=== PATIENT | female | born 1970 | race Caucasian/White ===

== ENCOUNTER → 2016-04-17 | Outpatient (CLI) | payer BC ==
[~2016-04-17] VITALS: Ht 157.5 cm; Wt 88.5 kg
[~2016-04-17] MED LIST: GABA-494 PO; HYDR12.56 PO; LISI10TA6 PO
[2016-04-17 12:41] LABS: Basophils # (auto) 0 uL; Basophils % (auto) 0.2 % (0.0-2.0); Eosinophils # (auto) 0.2 uL; Eosinophils % (auto) 2.4 % (0.0-7.0); Hemoglobin 13.1 g/dL (12.2-16.2); Lymphocytes # (auto) 1.2 uL; Lymphocytes % (auto) 12.4 % (10.0-50.0); Mean Corpuscular Hemoglobin 32.4 pg (28.0-32.0); Mean Corpuscular Hgb Conc. 33.6 g/dL (32.0-36.0); Mean Corpuscular Volume 96.5 fL (80.0-100.0); Mean Platelet Volume 8.3 fL (7.4-10.4); Monocytes # (auto) 0.4 uL; Monocytes % (auto) 4.5 % (0.0-12.0); Neutrophils # (auto) 7.7 uL; Neutrophils % (auto) 80.5 % (37.0-80.0); Platelet Count (auto) 244 10^3/uL (140-450); Red Cell Distribution Width 15.3 % (11.6-16.0); Urine Bilirubin Negative (Negative); Urine Blood Negative /uL (Negative); Urine Color Yellow (Yellow); Urine Glucose Normal (Normal); Urine Ketone Negative (Negative); Urine Nitrite Negative (Negative); Urine Urobilinogen Normal (Negative); Urine pH 5.5 (5.0-8.0); White Blood Cell 9.6 10^3/uL (4.4-10.8)
[2016-04-17 12:52] LABS: INR 0.97 (0.9-1.15); Partial Thromboplastin Time 26.8 sec (22.64-33.71)
[2016-04-17 13:07] LABS: Albumin 3.8 g/dL (3.4-5.0); BUN/Creatinine Ratio 16.7; Calcium 9.1 mg/dL (8.5-10.1); Potassium 4.1 mmol/L (3.5-5.1); Total Protein 7.7 g/dL (6.4-8.2)
[2016-04-17 13:09] LABS: Bilirubin, Total 0.6 mg/dL (0.2-1.0)
== END | disposition home or self-care (01) ==
LOC: LAB 08:00 → EDSTATUS 04-20 07:00
PROVIDERS: ATTEND Obstetrics & Gynecology
DX: N92.0 Excessive and frequent menstruation with regular cycle (principal); N93.9 Abnormal uterine and vaginal bleeding, unspecified; Z90.710 Acquired absence of both cervix and uterus; I10 Essential (primary) hypertension; Z98.51 Tubal ligation status; Z90.722 Acquired absence of ovaries, bilateral
CPT/HCPCS: 36415; 80053; 81003; 84702; 85025; 85049; 85610; 85730; 86850; 86900; 86901

== ENCOUNTER 2016-08-03 07:12 | Inpatient (IN) | payer BC ==
[2016-07-31 12:27] LABS: Urine Bilirubin Negative (Negative); Urine Blood Negative /uL (Negative); Urine Color Yellow (Yellow); Urine Glucose Normal (Normal); Urine Ketone Negative (Negative); Urine Nitrite Negative (Negative); Urine Urobilinogen Normal (Negative)
[2016-07-31 12:32] LABS: Basophils # (auto) 0 uL; Basophils % (auto) 0.4 % (0.0-2.0); Eosinophils # (auto) 0.3 uL; Eosinophils % (auto) 5.8 % (0.0-7.0); Hematocrit 33.3 % (36.0-46.0); Lymphocytes # (auto) 1.1 uL; Lymphocytes % (auto) 19.9 % (10.0-50.0); Mean Corpuscular Hemoglobin 32.4 pg (28.0-32.0); Mean Corpuscular Hgb Conc. 32.9 g/dL (32.0-36.0); Mean Corpuscular Volume 98.4 fL (80.0-100.0); Mean Platelet Volume 8.1 fL (7.4-10.4); Monocytes # (auto) 0.4 uL; Neutrophils # (auto) 3.8 uL; Neutrophils % (auto) 66.9 % (37.0-80.0); Platelet Count (auto) 239 10^3/uL (140-450); Red Cell Distribution Width 15.4 % (11.6-16.0); White Blood Cell 5.6 10^3/uL (4.4-10.8)
[2016-07-31 12:46] LABS: INR 0.93 (0.9-1.15); Partial Thromboplastin Time 24.9 sec (22.64-33.71)
[2016-07-31 13:00] LABS: Albumin 3.8 g/dL (3.4-5.0); BUN/Creatinine Ratio 11.8; Bilirubin, Total 0.2 mg/dL (0.2-1.0); Calcium 9.7 mg/dL (8.5-10.1); Potassium 4.3 mmol/L (3.5-5.1); Total Protein 7.4 g/dL (6.4-8.2)
[~2016-08-03] VITALS: Ht 157.5 cm; Wt 90.5 kg
[~2016-08-03 07:12] MED LIST changes: +AMLO10TA2 PO; -HYDR12.56 PO
[2016-08-03] MEDS ORDERED: ceFAZolin 1GM/50ML D5W 50 ML IV ONE (07:31)
[2016-08-03] MEDS ORDERED: HYDROMORPHONE PCA IN NS 50 ML IV SCH (08:33)
[2016-08-03] MEDS ORDERED: ROCURONIUM 10MG/ML 10ML VIAL IV ONE (08:51)
[2016-08-03] MEDS ORDERED: fentaNYL CITRATE 100 MCG/2 ML VL ONE ×2 (08:51→11:49)
[2016-08-03] MEDS ORDERED: MIDAZOLAM HCL 1MG/1ML-2 ML VIAL ONE ×2 (08:51→11:49)
[2016-08-03] MEDS ORDERED: PROPOFOL 10 MG/ML 20 ML IV ONE (08:51)
[2016-08-03] MEDS ORDERED: MEPERIDINE HCL (50 MG/ML) 1 ML VIAL ONE (08:51)
[2016-08-03] MEDS ORDERED: SODIUM CHLORIDE LOCK 50 ML ONE (08:51)
[2016-08-03] MEDS ORDERED: SUCCINYLCHOLINE CHLORIDE 20 MG/ML 10ML VIAL IV ONE (08:51)
[2016-08-03] MEDS ORDERED: LIDOCAINE HCL 2 %PF INJ 10ML AMP IJ ONE (09:47)
[2016-08-03] MEDS ORDERED: KETOROLAC TROMETH 30 MG/ML 1ML VIAL IV ONE ×2 (10:15→10:30)
[2016-08-03] MEDS ORDERED: METOCLOPRAMIDE HCL 5MG/ml INJ 2ml VIAL IV ONE ×2 (10:15→10:30)
[2016-08-03] MEDS ORDERED: HYDROmorphone HCL 2 MG/ML VL IV PRN ×2 (10:15→10:30)
[2016-08-03] MEDS ORDERED: NEOSTIGMINE 1 MG/ML INJ (10mg/10ML VIAL) ONE (10:24)
[2016-08-03] MEDS ORDERED: GLYCOPYRROLATE 0.2 MG/ML 1ML VIAL ONE (10:24)
[2016-08-03] MEDS ORDERED: KETOROLAC TROMETH 60MG/2ML VIAL IM ONE (10:24)
[2016-08-03] MEDS ORDERED: LACTATED RINGER'S 1,000 ML IV SCH (11:21)
[2016-08-03] MEDS ORDERED: ONDANSETRON HCL 4 MG/2 ML VIAL IV PRN ×2 (11:30→14:15)
[2016-08-03] MEDS ORDERED: ACETAMINOPHEN IV 100 ML IV ONE (11:53)
[2016-08-03] MEDS ORDERED: ACETAMINOPHEN IV 1000 MG/100ML (10MG/ML) IV ONE (12:00)
[2016-08-03] MEDS: HYDROmorphone HCL 2 MG/ML VL IV PRN ×2 (14:27→22:43)
[2016-08-03] MEDS: ceFAZolin 1GM/50ML D5W 50 ML IV SCH ×2 (15:04→22:44)
[2016-08-03 16:08] VITALS: BP 110/76
[2016-08-03] MEDS ORDERED: HYDR12.56 PO (17:10)
[2016-08-03 17:11] VITALS: BP 105/73
[2016-08-03] MEDS: KETOROLAC TROMETH 30 MG/ML 1ML VIAL IV SCH (18:14)
[2016-08-03 20:00] VITALS: BP 105/73
[2016-08-03 20:04] LABS: Basophils # (auto) 0 uL; Basophils % (auto) 0.3 % (0.0-2.0); Eosinophils # (auto) 0.2 uL; Eosinophils % (auto) 2.3 % (0.0-7.0); Hematocrit 29.5 % (36.0-46.0); Hemoglobin 9.8 g/dL (12.2-16.2); Lymphocytes # (auto) 0.9 uL; Lymphocytes % (auto) 13.2 % (10.0-50.0); Mean Corpuscular Hemoglobin 32.6 pg (28.0-32.0); Mean Corpuscular Hgb Conc. 33.2 g/dL (32.0-36.0); Mean Corpuscular Volume 98.1 fL (80.0-100.0); Mean Platelet Volume 7.6 fL (7.4-10.4); Monocytes # (auto) 0.2 uL; Monocytes % (auto) 3.7 % (0.0-12.0); Neutrophils # (auto) 5.4 uL; Neutrophils % (auto) 80.5 % (37.0-80.0); Platelet Count (auto) 180 10^3/uL (140-450); Red Cell Distribution Width 15.5 % (11.6-16.0); White Blood Cell 6.7 10^3/uL (4.4-10.8)
[2016-08-03 22:00] VITALS: BP 117/86
[2016-08-04 05:00] VITALS: BP 128/79
[2016-08-04] MEDS: HYDROmorphone HCL 2 MG/ML VL IV PRN ×2 (05:45→10:19)
[2016-08-04] MEDS: KETOROLAC TROMETH 30 MG/ML 1ML VIAL IV SCH ×4 (06:00→18:00)
[2016-08-04] MEDS: ceFAZolin 1GM/50ML D5W 50 ML IV SCH (06:03)
[2016-08-04 06:22] LABS: Basophils # (auto) 0 uL; Basophils % (auto) 0.2 % (0.0-2.0); Eosinophils # (auto) 0.2 uL; Eosinophils % (auto) 3.4 % (0.0-7.0); Hematocrit 27.7 % (36.0-46.0); Hemoglobin 9.3 g/dL (12.2-16.2); Lymphocytes # (auto) 0.7 uL; Lymphocytes % (auto) 11.6 % (10.0-50.0); Mean Corpuscular Hgb Conc. 33.5 g/dL (32.0-36.0); Mean Corpuscular Volume 98.5 fL (80.0-100.0); Mean Platelet Volume 7.9 fL (7.4-10.4); Monocytes # (auto) 0.3 uL; Monocytes % (auto) 4.6 % (0.0-12.0); Neutrophils # (auto) 4.5 uL; Neutrophils % (auto) 80.2 % (37.0-80.0); Platelet Count (auto) 183 10^3/uL (140-450); Red Cell Distribution Width 15.4 % (11.6-16.0); White Blood Cell 5.7 10^3/uL (4.4-10.8)
[2016-08-04 08:00] VITALS: BP 117/75
[2016-08-04 09:00] VITALS: BP 117/75
[2016-08-04] MEDS ORDERED: BISACODYL 10 MG RECT SUPP PR PRN (10:45)
[2016-08-04] MEDS ORDERED: SUCRALFATE 1 GM TAB PO ONE (10:45)
[2016-08-04] MEDS ORDERED: HYDROcodone-ACET 10/325MG TAB PO PRN (10:45)
[2016-08-04] MEDS ORDERED: LACTATED RINGER'S 1,000 ML IV SCH (11:21)
[2016-08-04] MEDS ORDERED: HYDROcodone-ACET 5/325MG TAB PO PRN (11:45)
[2016-08-04 13:00] VITALS: BP 139/85
[2016-08-04] MEDS: HYDROcodone-ACET 5/325MG TAB PO PRN (14:06)
[2016-08-04 16:52] VITALS: BP 106/77
[2016-08-04] MEDS: DOCUSATE SOD 100 MG CAP PO SCH (21:19)
[2016-08-04 21:35] VITALS: BP 131/86
[2016-08-05] MEDS: HYDROcodone-ACET 5/325MG TAB PO PRN (03:26)
[2016-08-05 04:30] VITALS: BP 128/83
[2016-08-05 08:00] VITALS: BP 131/81
[2016-08-05] MEDS ORDERED: ONDANSETRON HCL 4 MG/2 ML VIAL IV ONE (08:51)
[2016-08-05 09:00] VITALS: BP 131/81
[2016-08-05] MEDS: DOCUSATE SOD 100 MG CAP PO SCH (10:00)
[2016-08-05 13:00] VITALS: BP 141/83
== END 2016-08-05 13:30 | disposition home or self-care (01) | DRG 743 ==
LOC: SUR 07:12 → EAST 07:13
PROVIDERS: ADMIT Obstetrics & Gynecology; ATTEND Obstetrics & Gynecology
PROC: 0UTC0ZZ Resection of Cervix, Open Approach (ICD-10-PCS; 2016-08-03)
PROC: 0UT20ZZ Resection of Bilateral Ovaries, Open Approach (ICD-10-PCS; 2016-08-03)
PROC: 0UT70ZZ Resection of Bilateral Fallopian Tubes, Open Approach (ICD-10-PCS; 2016-08-03)
PROC: 0UT90ZZ Resection of Uterus, Open Approach (ICD-10-PCS; principal; 2016-08-03 09:08)
DX: N92.0 Excessive and frequent menstruation with regular cycle (principal); F17.200 Nicotine dependence, unspecified, uncomplicated; I10 Essential (primary) hypertension; Z90.710 Acquired absence of both cervix and uterus; Z98.51 Tubal ligation status
CPT/HCPCS: 36415; 80053; 81003; 84702; 85025; 85610; 85730; 86850; 86900; 86901; J0131; J0330; J0690; J1885; J2250; J2405; J2704

== ENCOUNTER → 2017-11-06 | Outpatient (CLI) | payer BC ==
[~2017-11-06] MED LIST changes: -GABA-494 PO; +GABA100C9 PO; +HYDR12.56 PO
== END | disposition home or self-care (01) ==
LOC: LAB 11:03
PROVIDERS: ATTEND Obstetrics & Gynecology
DX: I10 Essential (primary) hypertension (principal); F17.210 Nicotine dependence, cigarettes, uncomplicated; Z95.1 Presence of aortocoronary bypass graft; Z79.899 Other long term (current) drug therapy
CPT/HCPCS: 84403